=== PATIENT | female | born 1980 | race Caucasian/White ===

== ENCOUNTER → 2021-06-20 | Outpatient (CLI) | payer OTHER ==
[~2021-06-20] MED LIST: GENTLE EXPRESSI1 CRE TP; MOTRIN 600600 MG/TAB PO; MOTRIN 800800 MG/TAB PO; PERCOCET 325 MG1 TA2 PO; PRENATAL1 TA1 PO; SENOKOT S 50 MG1 TAB PO; TYLENOL 325MG325 MG PO; VALTREX 50500 MG/TAB PO; VITAMIN D32000 I1 PO
== END ==
LOC: MC.RAD 08:39
DX: Z12.31 Encounter for screening mammogram for malignant neoplasm of breast (principal)